=== PATIENT | female | born 1985 | race Caucasian/White ===

== ENCOUNTER → 2023-06-04 | Outpatient (CLI) | payer BC ==
[2023-06-04 15:59] LABS: INR 0.9 (<1.2); Partial Thromboplastin Time 24.6 sec (22.0-30.0); Prothrombin Time 10.5 sec (10.0-12.5)
[2023-06-05 02:39] LABS: HGB 13.6 g/dL (12.0-15.0); MCH 29.8 pg (27.0-32.0); MCHC 32.4 g/dL (32.0-37.0); MCV 92.1 FL (80.0-97.0); Mean Platelet Volume 11.3 FL (9.5-12.2); NRBC Per 100 WBC 0 X 10*3/uL (0.00-0.01); Platelet Count 258 X 10*3/uL (140-440); RBC 4.56 X 10*6/uL (4.10-5.20); RDW 13.3 % (11.5-14.5); WBC 10.32 X 10*3/uL (4.50-10.00)
[2023-06-05 02:58] LABS: Prealbumin 23.1 mg/dL (18.0-42.0)
[2023-06-05 03:44] LABS: % Iron Saturation 25.16 (12.00-45.00); ALT 15 U/L (8-44); AST 15 U/L (13-35); Albumin 4.1 g/dL (3.8-4.9); Albumin/Globulin Ratio 1.64 Ratio (1.60-3.17); Alkaline Phosphatase 58 U/L (41-126); BUN/Creat Ratio 11.75 Ratio (12.00-20.00); Blood Urea Nitrogen 9.4 mg/dL (9.0-27.0); Calcium 9.1 mg/dL (8.7-10.3); Chloride 105 mmol/L (96-109); Chol/HDL Ratio 4.12 Ratio; Ferritin 32.1 ng/mL (10.0-291.0); Globulin 2.5 g/dL (1.6-3.3); Glucose 98 mg/dL (70-110); Iron 117 UG/DL (50-170); Magnesium 2.2 mg/dL (1.5-2.4); Phosphorus 2.5 mg/dL (2.4-5.1); Potassium 3.9 mmol/L (3.5-5.5); Sodium 140 mmol/L (135-145); Total Bilirubin 0.3 mg/dL (0.3-1.2); Total Iron Binding Capacity 465 UG/DL (228-460); Total Protein 6.6 g/dL (6.2-8.2)
[2023-06-05 13:06] LABS: Zinc, Serum 68 ug/dL (60-130)
[2023-06-06 06:45] LABS: Vitamin A 51 ug/dL (38-106)
== END | disposition home or self-care (01) ==
LOC: LABWHC1 14:21
PROVIDERS: ATTEND Surgery Plastic and Reconstructive Surgery
DX: E66.01 Morbid (severe) obesity due to excess calories (principal); E89.1 Postprocedural hypoinsulinemia; D50.8 Other iron deficiency anemias; K91.2 Postsurgical malabsorption, not elsewhere classified; E44.0 Moderate protein-calorie malnutrition; E55.9 Vitamin D deficiency, unspecified; K74.1 Hepatic sclerosis; N19 Unspecified kidney failure; E44.1 Mild protein-calorie malnutrition; E45 Retarded development following protein-calorie malnutrition; E46 Unspecified protein-calorie malnutrition; T56.894A Toxic effect of other metals, undetermined, initial encounter; K50.90 Crohn's disease, unspecified, without complications
CPT/HCPCS: 36415; 80053; 80061; 80323; 82306; 82525; 82607; 82728; 82746; 83036; 83540; 83550; 83721; 83735; 83970; 84100; 84134; 84255; 84425; 84443; 84590; 84630; 85027; 85610; 85730; 93005

== ENCOUNTER → 2023-07-03 | Outpatient (CLI) | payer BC ==
--- NOTE | 2023-07-03 10:27 | FL ---
ESOPHOGRAM. HISTORY: Dysphagia Esophagram was performed per the air contrast technique. The patient swallowed barium and effervesce nt crystals without difficulty or delay. Esophageal peristalsis and motility appear to be within normal limits. There is no evidence for filling defect, mass or diverticulum. Small reducible sliding type hiatal hernia. Subsequently single contrast cervical esophagram was performed which fails demonstrate evidence for a spiration penetration or mass. IMPRESSION: Small reducible sliding type hiatal hernia.
== END | disposition home or self-care (01) ==
LOC: RADUSWWP 09:37
PROVIDERS: ATTEND Surgery Plastic and Reconstructive Surgery
DX: R13.10 Dysphagia, unspecified (principal); K44.9 Diaphragmatic hernia without obstruction or gangrene
CPT/HCPCS: 74220

== ENCOUNTER → 2023-07-14 | Day surgery (SDC) | payer BC ==
[~2023-07-14] MED LIST: LIDOCAINE 1% (10MG/ML) FOR IV START INTRADERMA PRN; LIDOCAINE 2% (PF) 20 MG/ML 5 ML VIAL ONE; ONDANSETRON 4 MG/2 ML VIAL IVP PRN; PROPOFOL 10 MG/ML 20 ML VIAL IV ONE; fentaNYL (PF) 50 MCG/ML 2 ML AMP ONE
--- NOTE | 2023-07-14 07:36 | P.GSHP ---
History of Present Illness H&P Date: 07/14/23 CHIEF COMPLAINT: GERD HISTORY OF PRESENT ILLNESS: The patient is a 38-year-old female who presents reports gastroesophageal reflux disease. Upper endoscopy was offered for further evaluation and management. PAST MEDICAL HISTORY: Please see list. PAST SURGICAL HISTORY: Please see list. MEDICATIONS: Please see list. ALLERGIES: Please see list. SOCIAL HISTORY: No illicit drug use FAMILY HISTORY: No reports of Crohn disease or ulcerative colitis. REVIEW OF ORGAN SYSTEMS: CONSTITUTIONAL: No reports of fevers or chills. GI: Denies any blood in stools or constipation. PHYSICAL EXAM: VITAL SIGNS: Stable GENERAL: Well-developed and pleasant in no acute distress. HEENT: No scleral icterus. Extraocular movements grossly intact. Moist buccal mucosa. NECK: Supple without lymphadenopathy. CHEST: Unlabored respirations. Equal bilateral excursions. CARDIOVASCULAR: Regular rate and rhythm. Distal 2+ pulses. ABDOMEN: Soft, nondistended. MUSCULOSKELETAL: No clubbing, cyanosis, or edema. ASSESSMENT: 1. Gastroesophageal reflux disease PLAN: 1. Recommend proceeding with an upper endoscopy Past Medical History Past Medical History: Asthma, GERD/Reflux, Hypertension Additional Past Medical History / Comment(s): hx migraines, sometimes will have stuff coming up back of throat History of Any Multi-Drug Resistant Organisms: None Reported Past Surgical History: Appendectomy, Section, Cholecystectomy, Tubal Ligation Additional Past Surgical History / Comment(s): C/S x3 Past Anesthesia/Blood Transfusion Reactions: Previous Problems w/ Anesthesia, Motion Sickness, Postoperative Nausea & Vomiting (PONV) Additional Past Anesthesia/Blood Transfusion Reaction / Comment(s): slow to wake up after last surg. Smoking Status: Former smoker, Vaper Medications and Allergies Home Medications Medication Instructions Recorded Confirmed Type Famotidine [Pepcid] 10 mg PO DAILY 06/04/23 07/10/23 History Losartan [Cozaar] 25 mg PO DAILY 06/04/23 07/10/23 History Omeprazole 20 mg PO DAILY 06/04/23 07/10/23 History Propranolol [Inderal] 10 mg PO DAILY 06/04/23 07/10/23 History norethindrone-e.estradioL-iron 1 tab PO DAILY 06/10/23 07/10/23 History [Junel Fe 1 mg-20 Mcg Tablet] Ibuprofen [Motrin Ib] 200 mg PO HS 07/10/23 07/10/23 History Allergies Allergy/AdvReac Type Severity Reaction Status Date / Time shellfish derived [Shellfish] Allergy Swelling Verified 07/10/23 17:15
[2023-07-14] MEDS: LACTATED RINGERS 1,000 ML IV SCH (08:05)
[2023-07-14 08:16] VITALS: TEMP 97.5
--- NOTE | 2023-07-14 08:40 | P.PCN ---
Date of Procedure: 07/14/23 Description of Procedure: PREOPERATIVE DIAGNOSIS: Gastroesophageal reflux disease. Morbid obesity. POSTOPERATIVE DIAGNOSIS: Gastroesophageal reflux disease. Morbid obesity. Gastritis. OPERATION: Esophagogastroduodenoscopy with biopsies esophagus, along antrum and duodenum SURGEON: Apple Bernal MD ANESTHESIA: MAC. INDICATIONS: The patient is a 38-year-old female who presents with reflux disease. Benefits and risks of the procedure were described. Informed consent was obtained. DESCRIPTION: The patient was brought into the endoscopy suite and laid in the left lateral decubitus position. An Olympus gastroscope was passed along the posterior oropharynx down to the distal esophagus where the squamocolumnar junction was encountered at 40 cm from the incisors. The stomach was entered and no bile reflux was found. Additional findings are listed below. Biopsies with cold forceps were obtained of the antrum. The first through third portion of the duodenum was examined. Retroflexion of the scope confirmed Hill grade 2 lower esophageal valve. The squamocolumnar junction demonstrated LA grade B erosive esophagitis. The stomach was desufflated. The patient tolerated the procedure well. FINDINGS: Squamocolumnar junction 40 cm from the incisors. Diaphragmatic hiatus at 40 cm. Hill grade 2 lower esophageal valve. LA grade B erosive esophagitis. Biopsies obtained Biopsies obtained of the duodenum. Chronic gastritis with biopsies obtained. RECOMMENDATIONS: Upper endoscopy as needed. Plan - Discharge Summary Discharge Rx Participant: No New Discharge Prescriptions: Continue Losartan [Cozaar] 25 mg PO DAILY Propranolol [Inderal] 10 mg PO DAILY Omeprazole 20 mg PO DAILY Famotidine [Pepcid] 10 mg PO DAILY norethindrone-e.estradioL-iron [Junel Fe 1 mg-20 Mcg Tablet] 1 tab PO DAILY Ibuprofen [Motrin Ib] 200 mg PO HS Discharge Medication List Famotidine [Pepcid] 10 mg PO DAILY 06/04/23 [History] Losartan [Cozaar] 25 mg PO DAILY 06/04/23 [History] Omeprazole 20 mg PO DAILY 06/04/23 [History] Propranolol [Inderal] 10 mg PO DAILY 06/04/23 [History] norethindrone-e.estradioL-iron [Junel Fe 1 mg-20 Mcg Tablet] 1 tab PO DAILY 06/10/23 [History] Ibuprofen [Motrin Ib] 200 mg PO HS 07/10/23 [History] Follow up App[facility]ment(s[facility] [facility] [place] - [place]/[facility]/23 Patient Instructions/Handouts: *Surgery [facility] - (Anesthesia) Discharge Instructions Outpatient Surgery, Gastritis (DC), GERD (Gastroesophageal Reflux Disease) (DC) Discharge Disposition: HOME SELF-CARE
[2023-07-14] MEDS: ONDANSETRON 4 MG/2 ML VIAL IVP ONE (08:45)
[2023-07-14 08:51] VITALS: RESP 16
[2023-07-14 09:26] VITALS: BP 107/71; PULSE 59
== END | disposition home or self-care (01) ==
LOC: ORWHC2ENDO 07:18
PROVIDERS: ATTEND Surgery Plastic and Reconstructive Surgery
DX: K29.50 Unspecified chronic gastritis without bleeding (principal); K21.00 Gastro-esophageal reflux disease with esophagitis, without bleeding; E66.01 Morbid (severe) obesity due to excess calories; D72.820 Lymphocytosis (symptomatic); I10 Essential (primary) hypertension; J45.909 Unspecified asthma, uncomplicated; Z79.899 Other long term (current) drug therapy; Z87.891 Personal history of nicotine dependence; Z90.49 Acquired absence of other specified parts of digestive tract; Z98.51 Tubal ligation status; Z91.013 Allergy to seafood; Z79.1 Long term (current) use of non-steroidal anti-inflammatories (NSAID); Z68.41 Body mass index [BMI] 40.0-44.9, adult
CPT/HCPCS: 81025; 88305; 43239; J2405; J3010; J2704; J2001

== ENCOUNTER → 2023-08-06 | Outpatient (CLI) | payer BC ==
[2023-08-06 13:08] VITALS: BP 128/84; PULSE 85; TEMP 98.3; BMI 41.6
--- NOTE | 2023-08-06 13:59 | P.BASOAP ---
Subjective Progress Note Date: 08/06/23 Recommend fixing hiatal hernia. Treatment for celiac disease. Carafate prescribed. EGD, reviewed. Labs reviewed. Objective - Vital Signs Vital signs: Vital Signs Temp 98.3 F 08/06/23 13:01 Pulse 85 08/06/23 13:01 Resp BP 128/84 08/06/23 13:01 Pulse Ox FiO2 Intake & Output 08/05/23 08/06/23 08/06/23 18:59 06:59 18:59 Weight 126.008 kg Assessment/Plan Plan: Date: 08/06/23 Initial Weight: 122.016 kg Initial BMI: 40.3 Current Weight: 126.008 kg Current BMI: 41.6 Type of Surgery: Total Volume in Band: Previous Volume: Volume Removed: Volume Added: Band Size:
== END ==
LOC: BARWHC3 12:41
PROVIDERS: ATTEND Surgery Plastic and Reconstructive Surgery
DX: E66.01 Morbid (severe) obesity due to excess calories (principal); Z53.9 Procedure and treatment not carried out, unspecified reason
CPT/HCPCS: 99211

== ENCOUNTER → 2023-08-18 | Outpatient (CLI) | payer BC ==
[2023-08-18 15:11] VITALS: BMI 42.1
== END ==
LOC: BARWHC3 13:01
PROVIDERS: ATTEND Surgery Plastic and Reconstructive Surgery
DX: E66.01 Morbid (severe) obesity due to excess calories (principal); Z71.3 Dietary counseling and surveillance; Z91.013 Allergy to seafood
CPT/HCPCS: 97804

== ENCOUNTER 2023-09-01 13:46 | Day surgery (SDC) | payer BC ==
--- NOTE | 2023-09-01 06:54 | P.GSHP ---
History of Present Illness H&P Date: 09/01/23 CHIEF COMPLAINT: Morbid obesity HISTORY OF PRESENT ILLNESS: Hui Philippe is a 38-year-old female who comes with lifelong morbid obesity. As result of morbid obesity, she has developed hypertensive heart disease, osteoarthritis of the hips and knees. She presents with symptomatic reflux disease including diaphragmatic hiatal hernia. She presents for hiatal hernia repair At height of 5 feet 8 inches, her ideal body weight is 163 pounds. She comes in 277 pounds. Her body mass index is 42.1. She is 114 pounds overweight. PAST MEDICAL HISTORY: 1. Morbid obesity due to excess calories 2. Body mass index of 42.1 3. Osteoarthritis of the knees. 4. Osteoarthritis of the lower back. 5. Hypertensive heart disease. 6. Gastroesophageal reflux disease 7. Asthma 8. Depressive disorder 9. Generalized anxiety disorder PAST SURGICAL HISTORY: 1. Cholecystectomy 2. section 3. Appendectomy HOME MEDICATIONS: Reviewed ALLERGIES: Reviewed SOCIAL HISTORY: Past tobacco use. FAMILY HISTORY: No family history of ulcerative colitis disease or Crohn's disease. Family history of morbid obesity. No lupus in the family. No reports of stomach or esophageal cancer. Has clotting disorder. REVIEW OF ORGAN SYSTEMS: CONSTITUTIONAL: At height of 5 feet 8 inches, her ideal body weight is 163 pounds. She comes in 277 pounds. Her body mass index is 42.1. She is 114 pounds overweight. HEENT: Denies any active troubles with vision or hearing. ENDOCRINE: Has diabetes. Has hypothyroidism. CARDIOVASCULAR: Past reports of palpitations or heart attacks or chest pain. RESPIRATORY: Has daytime somnolence. GASTROINTESTINAL: Denies any bright red blood per rectum. Has gastroesophageal reflux disease. MUSCULOSKELETAL: Has lower back pain and joint pain. Has osteoarthritis of the knees. NEURO: No headaches. No seizure disorders. PSYCH: Has depression. No suicidal ideation. RHEUMATOLOGIC: No lupus. No rheumatoid arthritis. HEMATOLOGIC: Denies any abnormal bleeding or bruising. No personal history of DVTs. SKIN: Has rash. No skin cancer. PHYSICAL EXAM: VITAL SIGNS: Height 5 foot 8 inches, weight 277 pounds. BMI 42.1 GENERAL: Well-developed in no acute distress. HEENT: No scleral icterus. Extraocular movements grossly intact. Hears conversational speech. No nasal drainage. NECK: Supple without lymphadenopathy. CHEST: Nonlabored respirations with equal bilateral excursions. CARDIOVASCULAR: Regular rate and regular rhythm. Distal 2+ pulses. ABDOMEN: Obese, soft, nontender, nondistended. MUSCULOSKELETAL: No clubbing, cyanosis. NEURO: No focal or lateralizing signs. Cranial nerves 2 through 12 grossly within normal limits. PSYCH: Appropriate affect. Alert and oriented to person, place and time. SKIN: Good skin turgor. Well perfused. STUDIES: Barium swallow June 2023 independently reviewed demonstrates sliding diaphragmatic hiatal hernia. This is my independent interpretation. ASSESSMENT: 1. Morbid obesity due to excess calories 2. Body mass index of 42.1 3. Osteoarthritis of the knees. 4. Osteoarthritis of the lower back. 5. Hypertensive heart disease. 6. Gastroesophageal reflux disease 7. Asthma 8. Depressive disorder 9. Generalized anxiety disorder 10. Diaphragmatic hiatal hernia 11. Celiac disease PLAN: 1. Repair of diaphragmatic hiatal hernia described due to symptomatic and severe gastroesophageal reflux disease 2. A 2 week high-protein low caloric 800 kcal diet described to address hepatomegaly. Anticipated weight loss of 5% or 263 pounds. 3. DVT prophylaxis per [place] [facility]. 4. Antibiotic prophylaxis. 5. Inpatient hospitalization anticipated for more than 2 nights. 6. She is elevated risk for complications including recurrence due to pre- existing asthma Past Medical History Past Medical History: Asthma, GERD/Reflux, Hypertension Additional Past Medical History / Comment(s): HIATAL HERNIA History of Any Multi-Drug Resistant Organisms: None Reported Past Surgical History: Appendectomy, Section, Cholecystectomy Additional Past Surgical History / Comment(s): x 3, EGD Past Anesthesia/Blood Transfusion Reactions: Previous Problems w/ Anesthesia, Motion Sickness, Postoperative Nausea & Vomiting (PONV) Smoking Status: Former smoker - Past Family History Father Family Medical History: Blood Disorder Additional Family Medical History / Comment(s): HAS CLOTTING DISORDER-NOT SURE OF NAME Medications and Allergies Home Medications Medication Instructions Recorded Confirmed Type Famotidine [Pepcid] 10 mg PO DAILY 06/04/23 08/28/23 History Losartan [Cozaar] 25 mg PO DAILY 06/04/23 08/28/23 History Omeprazole 20 mg PO DAILY 06/04/23 08/28/23 History Propranolol [Inderal] 10 mg PO DAILY 06/04/23 08/28/23 History norethindrone-e.estradioL-iron 1 tab PO DAILY 06/10/23 08/28/23 History [Junel Fe 1 mg-20 Mcg Tablet] Ibuprofen [Motrin Ib] 200 mg PO HS 07/10/23 08/28/23 History Allergies Allergy/AdvReac Type Severity Reaction Status Date / Time shellfish derived [Shellfish] Allergy Swelling Verified 08/28/23 08:32
[~2023-09-01 13:46] MED LIST changes: -LIDOCAINE 1% (10MG/ML) FOR IV START INTRADERMA PRN; -LIDOCAINE 2% (PF) 20 MG/ML 5 ML VIAL ONE; -PROPOFOL 10 MG/ML 20 ML VIAL IV ONE; -fentaNYL (PF) 50 MCG/ML 2 ML AMP ONE
[2023-09-01] MEDS: LACTATED RINGERS 1,000 ML IV SCH (13:48)
[2023-09-01] MEDS: ACETAMINOPHEN TAB 500 MG TAB PO PRN (14:02)
[2023-09-01] MEDS: DEXAMETHASONE SOD PHOSPHATE 4 MG/ML 1 ML VIAL IV ONE (14:02)
[2023-09-01] MEDS: ONDANSETRON 4 MG/2 ML VIAL IVP ONE (14:02)
[2023-09-01] MEDS: HEPARIN SODIUM,PORCINE 5,000 UNIT/ML 1 ML VIAL SQ PRN (14:02)
[2023-09-01] MEDS: CHLORHEXIDINE GLUCONATE 15 ML CUP MUCOUS MEM STA (14:02)
[2023-09-01] MEDS: PANTOPRAZOLE 40 MG/10 ML VIAL IVP STA (14:03)
[2023-09-01] MEDS: SCOPOLAMINE 1 MG/72 HR PATCH TRANSDERM STA (14:03)
[2023-09-01] MEDS: MIDAZOLAM 2 MG/2 ML VIAL IVP ONE (14:47)
[2023-09-01] MEDS ORDERED: PROPOFOL 10 MG/ML 20 ML VIAL IV ONE (16:32)
[2023-09-01] MEDS ORDERED: fentaNYL (PF) 50 MCG/ML 2 ML AMP ONE (16:32)
[2023-09-01] MEDS ORDERED: LIDOCAINE 1% INJ 10MG/ML (20 ML MDV) ONE (16:32)
[2023-09-01] MEDS ORDERED: NEOSTIGMINE 1 MG/ML 10 ML VIAL ONE (16:32)
[2023-09-01] MEDS ORDERED: ROCURONIUM 10 MG/ML (5 ML VIAL) IV ONE (16:32)
[2023-09-01] MEDS ORDERED: HYDROmorphone (PF) 1 MG/ML ONE (16:32)
[2023-09-01] MEDS ORDERED: GLYCOPYRROLATE 0.2 MG/ML 2 ML VIAL ONE (16:32)
[2023-09-01] MEDS ORDERED: ONDANSETRON 4 MG/2 ML VIAL ONE (16:32)
[2023-09-01] MEDS ORDERED: MIDAZOLAM 2 MG/2 ML VIAL ONE (16:32)
[2023-09-01] MEDS ORDERED: SUCCINYLCHOLINE CHLORIDE 200 MG/10 ML VIAL IV ONE (16:32)
[2023-09-01] MEDS: ceFAZolin 3 GM in SODIUM CHLORIDE 0.9% 100 ML IVPB PRN (16:37)
[2023-09-01] MEDS: metroNIDAZOLE-NS PMX 500 MG in SALINE 1 100ML.BAG IVPB PRN (16:37)
[2023-09-01] MEDS: LIDOCAINE 1%-EPI 1:100,000 20 ML VIAL SQ ONE (17:04)
[2023-09-01] MEDS ORDERED: HYDROmorphone 1 MG/ML 1 ML SYRINGE IVP PRN (18:06)
[2023-09-01] MEDS: droPERidol 5 MG/2 ML VIAL IVP ONE (18:09)
--- NOTE | 2023-09-01 18:11 | P.OP ---
Date of Procedure: 09/01/23 Description of Procedure: SURGEON: RODOLFO ALEXANDER MD PREOPERATIVE DIAGNOSES: 1. Paraesophageal midline diaphragmatic hernia 2. Morbid obesity due to excess calories, Body mass index of 42.1 3. Osteoarthritis of the knees. 4. Osteoarthritis of the lower back. 5. Hypertensive heart disease. 6. Gastroesophageal reflux disease 7. Asthma 8. Depressive disorder 9. Generalized anxiety disorder 10. Celiac disease POSTOPERATIVE DIAGNOSES: 1. Paraesophageal midline diaphragmatic hernia, 3 cm, without incarceration. 2. Morbid obesity due to excess calories, Body mass index of 42.1 3. Osteoarthritis of the knees. 4. Osteoarthritis of the lower back. 5. Hypertensive heart disease. 6. Gastroesophageal reflux disease 7. Asthma 8. Depressive disorder 9. Generalized anxiety disorder 10. Celiac disease OPERATION: 1. Robotic-assisted da Colleen Xi laparoscopic repair of incarcerated paraesophageal hiatal hernia, 3 x 3 cm, with [place] Biopatch A 8 x 8 cm. 2. Intraoperative esophagogastroduodenoscopy 3. Placement of 56-[place] bougie ANESTHESIA: General with local anesthetic. ESTIMATED BLOOD LOSS: 5 mL SPECIMENS REMOVED: None COMPLICATIONS: None. Condition: stable Disposition: floor FINDINGS: 1. Midline incarcerated paraesophageal hiatal hernia 3 x 3 cm 2. Intraoperative upper endoscopy confirms complete closure of hiatal hernia from Hill grade 3 to Hill grade 1 3. Intraesophageal length over 3 cm INDICATIONS: The patient is a 38-year-old female who presents with gastroesophageal reflux disease poorly controlled despite medications, and a symptomatic diaphragmatic hiatal hernia. Preoperative workup including upper endoscopy demonstrated a sliding hiatal hernia. Given the severity of symptoms, the patient had elected for surgical intervention. Benefits and risks including bleeding, infection, recurrence, dysphagia, injury to the lung, need for further surgery was described at length. Informed consent was obtained. DESCRIPTION: The patient was brought into the operating room and placed in supine position. Preoperatively the patient had received heparin subcutaneously for DVT prophylaxis. After general induction, the abdomen was prepped and draped in standard sterile fashion. The patient had previously voided prior to coming to the o perating room. [place] draping was placed along the abdomen. A timeout protocol was confirmed with the surgical team, for which the patient's name, procedure to be performed including DVT prophylaxis with bilateral SCDs, and preoperative antibiotics were also confirmed. A robotic da Collene Xi system was prepped and primed. At 12 cm from the xiphoid to just below the umbilicus, proposed port sites were marked with indelible marker along the left axillary line, left mid-clavicular line with each ports were marked 10 cm from each other. A 5 mm 0 degrees laparoscopic trocar entry was performed along the left upper quadrant. The abdomen was insufflated to 15 mmHg pressure was tolerated well. Diagnostic laparoscopy demonstrated no injury to bowel, viscera, or mesentery. No injury had occurred to the small bowel or viscera. The liver was smooth consistent with two-week high-protein low-carb diet. Previous trochar sites from cholecystectomy were used. Next, one 8 mm robotic port was placed along the right upper abdomen. An 8-mm port was were placed along the right lateral lateral abdominal wall. The camera 8-mm port was maintained along the epigastrium. Another 12 mm port was placed along the left upper abdominal wall after exchanging the 5 mm port. Please note that the ports were placed at least 20 cm away from the target anatomy. Care was taken to check that each robotic arm were safely away from collision with the bed or the patient. At the epigastrium, a medium sized Ethan liver retractor was placed under direct visualization with the Iron Boat Outfitter placed under the right shoulder of the patient. All robotic arms were used. The patient was repositioned in reverse Trendelenburg position at 25-degrees after lowering the bed. The robot was docked above the right side of the patient. Using a grasper for arm 3, a grasper for arm 1, including vessel sealer for arm 2, the robotic system was docked and primed as described. Instruments were interchanged by the central supply assistant. I had sat at the console. The gastrohepatic ligament was cleaved using a vessel sealer. Next, the phrenoesophageal ligament was mobilized and the distal esophagus was mobilized circumferentially. The left and right crura was identified. Circumferentially, the hernia sac was excised and brought into the peritoneal cavity. Moderate dissection into the mediastinum was performed to release the esophagus into the abdominal cavity. The paraesophageal hiatal hernia sac was also incised and divided from the esophagus. Care was taken to avoid any gastrotomy. The measured defect was consistent with 3 cm axial length and 3 cm in width. After dissection, the distal esophagus of 2+ cm was brought into the abdominal cavity. Once the hiatus and crura was dissected, 2-0 VLOC nonabsorbable suture was placed to reapproximate the diaphragmatic hiatus posteriorly. To buttress the repair, a [place] Biopatch A was prepared along the back table and cut in half of a manning-hole fashion as to reinforce the repair as an underlay. The mesh was placed along the crural repair and tagged using horizontal mattress sutures using 2-0 VLOC. I went to the head of the bed to perform intraoperative esophagogastroduodenoscopy and placement of a 56Fr bougie. The bougie was passed along the posterior oropharynx into the stomach to address pre-existing esophageal dysmotility for 2 minutes then removed. An Olympus gastroscope was passed through posterior oropharynx. Retroflexion of the scope confirmed a Hill grade 1 lower esophageal valve. The stomach had been desufflated. No evidence of leaks were found of the esophagus or stomach. The GI tract with desufflated This concluded the endoscopic portion of the case. The robot was undocked from the patient. I re-scrubbed into the case. All instruments and pneumoperitoneum and specimens were evacuated from the abdominal cavity. Incisions were reapproximated using 4-0 Monocryl in an interrupted subcuticular fashion. Liquid glue was applied to the skin. Local anesthetic was infiltrated in all wounds for postop analgesia. At the end of the procedure, needle, sponge, and instrument count was verified correct by the surgical physician assistant. The patient had tolerated the procedure well and was taken to the postanesthesia unit in stable condition.
[2023-09-01] MEDS ORDERED: diphenhydrAMINE 50 MG/ML 1 ML VIAL IVP PRN (18:14)
[2023-09-01] MEDS: IV FLUID CONTINUATION 1,000 ML IV ONE (18:30)
[2023-09-01] MEDS: HYDROmorphone 0.5 MG/0.5 ML SYRINGE IVP PRN (18:31)
[2023-09-01] MEDS: DEXAMETHASONE SOD PHOSPHATE 4 MG/ML 1 ML VIAL IVP SCH (22:09)
[2023-09-01] MEDS: HEPARIN SODIUM,PORCINE 5,000 UNIT/ML 1 ML VIAL SQ SCH (22:24)
[2023-09-01] MEDS: D5-0.45% NACL WITH KCL 20MEQ/L 1,000 ML IV SCH (23:36)
[2023-09-01] MEDS: SIMETHICONE 80 MG CHEWABLE PO SCH (23:37)
[2023-09-01] MEDS: ONDANSETRON 4 MG/2 ML VIAL IVP SCH (23:38)
[2023-09-01] MEDS: KETOROLAC 15 MG/ML 1 ML VIAL IVP SCH (23:38)
[2023-09-01] MEDS: METOCLOPRAMIDE 5 MG/ML 2 ML VIAL IVP SCH (23:39)
[2023-09-02] MEDS: ACETAMINOPHEN ORAL SUSP (PEDS) 3,840 MG/120 ML BOTTLE PO SCH (01:46)
[2023-09-02] MEDS: HYOSCYAMINE ORAL DROPS 1.875 MG/15 ML BOTTLE PO SCH (01:49)
[2023-09-02] MEDS: NORETHINDRONE PO SCH (09:43)
[2023-09-02] MEDS: ETHINYL ESTRADIOL PO SCH (09:43)
[2023-09-02] MEDS: LOSARTAN 25 MG TAB PO SCH (09:43)
[2023-09-02] MEDS: PROPRANOLOL 10 MG TAB PO SCH (09:43)
[2023-09-02] MEDS: IRON PO SCH (09:43)
--- NOTE | 2023-09-02 12:26 | FL ---
SINGLE CONTRAST ESOPHAGRAM: CLINICAL HISTORY: 38 year-old female rule out leak/obstruction status post hiatal hernia repair TECHNIQUE: Single contrast exam performed with 4 ounces of thin barium per surgeon request (due to s hellfish allergy). Total fluoroscopy time: 1 minute Total images: 22 oh DOSE AREA PRODUCT (DAP) UGY*M,MGY*CM: 384.98 FINDINGS: The patient swallowed oral contrast without difficulty or delay. Esophageal peristalsis and motility are within normal limits. There is prompt passage of contrast from the esophagus into the stomach. We note prominent air distention of the gastric fundus and proximal gastric body. No residual hiatal hernia is seen. There is good flow of contrast to the distal stomach and proximal duodenum. There is no evidence of contrast extravasation to suggest leak. No post surgical free air. IMPRESSION: No evidence of leak or significant obstruction status post hiatal hernia repair. Prominent air disten tion of the gastric fundus and proximal gastric body.
[2023-09-02 13:41] VITALS: BMI 41.3
--- NOTE | 2023-09-02 14:27 | P.DS ---
Providers Expected date of discharge: 09/02/23 Attending physician: Apple Bernal [facility] [place] [facility] Course: Discharge diagnosis 1. Paraesophageal midline diaphragmatic hernia, 3 cm, without incarceration. 2. Morbid obesity due to excess calories, Body mass index of 42.1 3. Osteoarthritis of the knees. 4. Osteoarthritis of the lower back. 5. Hypertensive heart disease. 6. Gastroesophageal reflux disease 7. Asthma 8. Depressive disorder 9. Generalized anxiety disorder 10. Celiac disease Hospital course The patient is a 38-year-old female who presents with gastroesophageal reflux disease poorly controlled despite medications, and a symptomatic diaphragmatic hiatal hernia. Patient is status post robotic assisted laparoscopic repair of incarcerated paraesophageal hiatal hernia with [place] bio patch. Patient is crissy erating liquid diet. Upper GI showed no evidence of leak or obstruction. She is having flatus. Her pain is controlled. She has been up and ambulating. She is stable for discharge. Physician Lawyer note has been reviewed by physician. Signing provider agrees with the documented findings, assessment, and plan of care. Patient Condition at Discharge: Stable Plan - Discharge Summary Discharge Rx Participant: Yes New Discharge Prescriptions: New bisacodyL [Dulcolax] 5 mg PO DAILY PRN #10 tab PRN Reason: Constipation Simethicone 40 mg/0.6 ml Drops [Mylicon Drops] 40 mg PO PCHS PRN #30 ml PRN Reason: Gas Acetaminophen Tab [Tylenol Tab] 1,000 mg PO Q6HR PRN #30 tablet PRN Reason: Pain Ondansetron Odt [Zofran Odt] 4 mg PO Q8HR PRN #9 tab PRN Reason: Nausea Continue Losartan [Cozaar] 25 mg PO DAILY Propranolol [Inderal] 10 mg PO DAILY norethindrone-e.estradioL-iron [Junel Fe 1 mg-20 Mcg Tablet] 1 tab PO DAILY Discontinued Omeprazole 20 mg PO DAILY Famotidine [Pepcid] 10 mg PO DAILY Ibuprofen [Motrin Ib] 200 mg PO HS Discharge Medication List Losartan [Cozaar] 25 mg PO DAILY 06/04/23 [History] Propranolol [Inderal] 10 mg PO DAILY 06/04/23 [History] norethindrone-e.estradioL-iron [Junel Fe 1 mg-20 Mcg Tablet] 1 tab PO DAILY 06/10/23 [History] Acetaminophen Tab [Tylenol Tab] 1,000 mg PO Q6HR PRN #30 tablet 09/01/23 [Rx] Ondansetron Odt [Zofran Odt] 4 mg PO Q8HR PRN #9 tab 09/01/23 [Rx] Simethicone 40 mg/0.6 ml Drops [Mylicon Drops] 40 mg PO PCHS PRN #30 ml 09/01/23 [Rx] bisacodyL [Dulcolax] 5 mg PO DAILY PRN #10 tab 09/01/23 [Rx] Follow up Appointment(s)/[place] [facility] [place] - 09/05/23 9:00 am Patient Instructions/Handouts: Laparoscopic Hiatal Hernia Repair (DC) Activity/Diet/Wound Care/Special Instructions: Liquid diet only for 2 weeks until September 14 No lifting over 4 pounds in 4 weeks, October 01August shower No soaking in bath tubs for 2 weeks, September 14 Please notify your surgeon if you develop nausea and vomiting including new onset of abdominal pain. Please ambulate at all times. Use Simethicone, Gas-X, Tylenol and ibuprofen or Aleve scheduled for the next 24-48 hours for best pain relief. Use ice along incisions for the today to prevent swelling. Please open, cut, crush pills larger than the size of a tic tack No carbonated beverages. No straws. Do not remove scopolamine patch for 3 days, if present Avoiding Gas Avoid drinking through a straw. Do not chew gum or tobacco. These actions cause you to swallow air, which produces excess gas in your stomach. Chew with your mouth closed. Avoid any foods that cause stomach gas and distention. These foods include corn, dried beans, peas, lentils, onions, broccoli, cauliflower and any food from the cabbage family. Avoid carbonated drinks, alcohol, citrus and tomato products. Carbonated drinks (sodas) are not allowed for the first six to eight weeks after surgery. After this time you can try them again in small amounts Clear Liquid Diet The first diet after surgery is the clear liquid diet. It includes the following liquids: Apple juice Cranberry juice Grape juice Chicken broth Beef broth Flavored gelatin (Jell-O) Decaf tea and coffee Caffeinated beverages are permitted based on tolerance Popsicles British ice Full Liquid Diet The full liquid diet contains anything on the clear liquid diet, plus: Milk, soy, rice and almond (no chocolate) Cream of wheat, cream of rice, grits Strained creamed soups (no tomato or broccoli) Vanilla and strawberry-flavored ice cream Sherbet Blended, custard styled or whipped yogurt (plain or vanilla only) Vanilla and butterscotch pudding (no chocolate or coconut) Nutritional drinks including Ensure, Boost, [place] Instant Breakfast (no chocolate-flavored) Note: Dairy products, such as milk, ice cream and pudding, may cause diarrhea in some people just after surgery. You may need to avoid milk products. If so, substitute them with lactose-free beverages, such as soy, rice, Lactaid or almond milks. Discharge Disposition: HOME SELF-CARE
[2023-09-02 14:29] VITALS: BP 115/67; PULSE 68; RESP 18; TEMP 98.6
== END 2023-09-02 15:22 | disposition home or self-care (01) ==
LOC: OR 13:46 → 4SSUR 17:52 → OR 09-02 15:22
PROVIDERS: ATTEND Surgery Plastic and Reconstructive Surgery
DX: K44.0 Diaphragmatic hernia with obstruction, without gangrene (principal); E66.01 Morbid (severe) obesity due to excess calories; F32.A Depression, unspecified; F41.1 Generalized anxiety disorder; I11.9 Hypertensive heart disease without heart failure; J45.909 Unspecified asthma, uncomplicated; K21.9 Gastro-esophageal reflux disease without esophagitis; K90.0 Celiac disease; M16.0 Bilateral primary osteoarthritis of hip; M17.0 Bilateral primary osteoarthritis of knee; Z87.891 Personal history of nicotine dependence; Z79.899 Other long term (current) drug therapy; Z90.49 Acquired absence of other specified parts of digestive tract; Z98.891 History of uterine scar from previous surgery; Z79.1 Long term (current) use of non-steroidal anti-inflammatories (NSAID); Z68.41 Body mass index [BMI] 40.0-44.9, adult
CPT/HCPCS: 43282; S2900; 74210; 81025

== ENCOUNTER → 2023-09-05 | Outpatient (CLI) | payer BC ==
[2023-09-05 10:43] VITALS: BP 131/87; PULSE 103; RESP 14; TEMP 97.6; BMI 40.1
--- NOTE | 2023-09-05 11:02 | P.BASOAP ---
Subjective Progress Note Date: 09/05/23 She complains of itching along incisions. Has allergic reaction to draping. Patient advised 4-week recovery from August 31 to October 01. Lifting restrictions of 4 pounds for 4 weeks reinforced. Follow-up bariatric diet. Follow-up in 1 week. Use Zyrtec, Claritin, Benadryl, calamine lotion for itching along incisions. She reports no reflux disease. Son is at bedside. Patient may drive. Objective - Vital Signs Vital signs: Vital Signs Temp 97.6 F 09/05/23 09:52 Pulse 103 H 09/05/23 09:52 Resp 14 09/05/23 09:52 BP 131/87 09/05/23 09:52 Pulse Ox FiO2 Intake & Output 09/04/23 09/05/23 09/05/23 18:59 06:59 18:59 Weight 121.336 kg Assessment/Plan Plan: Date: 09/05/23 Initial Weight: 122.016 kg Initial BMI: 40.3 Current Weight: 121.336 kg Current BMI: 40.1 Type of Surgery: Total Volume in Band: Previous Volume: Volume Removed: Volume Added: Band Size:
== END ==
LOC: BARWHC3 08:53
PROVIDERS: ATTEND Surgery Plastic and Reconstructive Surgery
DX: E66.01 Morbid (severe) obesity due to excess calories (principal); L29.9 Pruritus, unspecified; Z88.8 Allergy status to other drugs, medicaments and biological substances; Z91.048 Other nonmedicinal substance allergy status; Z91.018 Allergy to other foods; Z91.013 Allergy to seafood; Z68.41 Body mass index [BMI] 40.0-44.9, adult; Z87.891 Personal history of nicotine dependence
CPT/HCPCS: 99211

== ENCOUNTER → 2023-09-10 | Outpatient (CLI) | payer BC ==
--- NOTE | 2023-09-10 13:34 | P.BASOAP ---
Subjective Progress Note Date: 09/10/23 She has severe allergic reaction despite benadryl and zyrtec did not help. Ordered Dexamethasone 20 mg IM. Has severe rash. NO GERD. Wants sleeve after this. Triamcinalone cream prescribed. Allergic to glue! Diet advised. She has celiac disease. No bypass. Lifting restrictions until September 29. Objective - Vital Signs Vital signs: Vital Signs Temp 98.0 F 09/10/23 12:59 Pulse 81 09/10/23 12:59 Resp 14 09/10/23 12:59 BP 119/85 09/10/23 12:59 Pulse Ox FiO2 Intake & Output 09/09/23 09/10/23 09/10/23 18:59 06:59 18:59 Weight 119.748 kg Assessment/Plan Plan: Date: 09/10/23 Initial Weight: 122.016 kg Initial BMI: 40.3 Current Weight: 119.748 kg Current BMI: 39.5 Type of Surgery: Total Volume in Band: Previous Volume: Volume Removed: Volume Added: Band Size:
[2023-09-10 14:29] VITALS: BMI 39.5
[2023-09-10] MEDS: DEXAMETHASONE SOD PHOSPHATE 10 MG/ML 1 ML VIAL IM STA (14:35)
[2023-09-10 15:23] VITALS: BP 133/85; PULSE 99; RESP 16; TEMP 98.3
== END ==
LOC: BARWHC3 12:45
PROVIDERS: ATTEND Surgery Plastic and Reconstructive Surgery
DX: L50.9 Urticaria, unspecified (principal)
CPT/HCPCS: 99211; 96372; J1100

== ENCOUNTER 2023-11-03 10:00 | Observation (INO) | payer BC ==
--- NOTE | 2023-11-03 07:51 | P.GSHP ---
History of Present Illness H&P Date: 11/03/23 CHIEF COMLAINT: Morbid obesity HISTORY OF PRESENT ILLNESS: Hui Philippe is a 38-year-old female who comes with lifelong morbid obesity. She wants the sleeve but now wants the bypass. She has been taking prilosec and pepcid for 5 years and her gastroesophageal reflux disease is still uncontrolled. Her sister had weight loss surgery. She had pneumonia in the past. She has severe acid reflux and had panic attack from chest pain. She had ulcers in her stomach. Add no prior testing of her stomach, CT scans or upper scopes. She reports in the morning she can taste acid in her throat. She tries to avoid carbonated beverages. She reports diarrhea after eating. She has no gallbladder since 10 years ago and appendix removal. She is looking into the gastric bypass ideally. At height of 5 feet 8.5 inches, her ideal body weight is 163 pounds. She comes in 269 pounds. Her body mass index is 40.3. She is 106 pounds overweight. PAST MEDICAL HISTORY: 1. Morbid obesity due to excess calories 2. Body mass index of 40.3 3. Hypertensive heart disease 4. Asthma 5. Gastroesophageal reflux disease 6. Motion sickness 7. Postop nausea vomiting 8. Depressive disorder 9. Generalized anxiety disorder 10. Gastric ulcers. PAST SURGICAL HISTORY: 1. Appendectomy 2. section 3. Cholecystectomy HOME MEDICATIONS: Home Medications Medication Instructions Recorded Confirmed Losartan [Cozaar] 25 mg PO DAILY 06/04/23 09/05/23 Propranolol [Inderal] 10 mg PO DAILY 06/04/23 09/05/23 norethindrone-e.estradioL-iron 1 tab PO DAILY 06/10/23 09/05/23 [Junel Fe 1 mg-20 Mcg Tablet] Previous Rx's Medication Instructions Recorded Acetaminophen Tab [Tylenol Tab] 1,000 mg PO Q6HR PRN #30 tablet 09/01/23 Ondansetron Odt [Zofran Odt] 4 mg PO Q8HR PRN #9 tab 09/01/23 Simethicone 40 mg/0.6 ml Drops 40 mg PO PCHS PRN #30 ml 09/01/23 [Mylicon Drops] bisacodyL [Dulcolax] 5 mg PO DAILY PRN #10 tab 09/01/23 ALLERGIES: Allergies Allergy/AdvReac Type Severity Reaction Status Date / Time shellfish derived [Shellfish] Allergy Swelling Verified 09/05/23 09:52 SOCIAL HISTORY: Past tobacco use. Currently vaping FAMILY HISTORY: No family history of ulcerative colitis disease or Crohn's dise ase. Family history of morbid obesity. No lupus in the family. No reports of stomach or esophageal cancer. Family history of blood clotting disorder. Sister had weight loss surgery. REVIEW OF ORGAN SYSTEMS: CONSTITUTIONAL: At height of 5 feet 8.5 inches, her ideal body weight is 163 pounds. She comes in 269 pounds. Her body mass index is 40.3. She is 106 pounds overweight. HEENT: Denies any active troubles with vision or hearing. Has troubles with swallowing. ENDOCRINE: Has diabetes. No hypothyroidism. CARDIOVASCULAR: Past reports of palpitations or heart attacks or chest pain. RESPIRATORY: Has daytime somnolence. Has asthma. Had pneumonia in the past. GASTROINTESTINAL: Denies any bright red blood per rectum. No constipation. Has severe gastroesophageal reflux disease. She had ulcers in her stomach. She has diarrhea after eating. MUSCULOSKELETAL: Has lower back pain and joint pain. Has osteoarthritis of the knees. History of bilateral lower extremity edema. NEURO: No headaches. No seizure disorders. PSYCH: Has depression. No suicidal ideation. RHEUMATOLOGIC: No lupus. No rheumatoid arthritis. HEMATOLOGIC: Denies any abnormal bleeding or bruising. No personal history of DVTs. On anticoagulant. SKIN: No rash. No skin cancer. PHYSICAL EXAM: VITAL SIGNS: Height 5 foot 8.5 inches, weight 269 pounds. BMI 40.3 GENERAL: Well-developed in no acute distress. HEENT: No scleral icterus. Extraocular movements grossly intact. Hears conversational speech. No nasal drainage. NECK: Supple without lymphadenopathy. CHEST: Nonlabored respirations with equal bilateral excursions. CARDIOVASCULAR: Regular rate and regular rhythm. Distal 2+ pulses. ABDOMEN: Obese, soft, nontender, nondistended. MUSCULOSKELETAL: No clubbing, cyanosis. NEURO: No focal or lateralizing signs. Cranial nerves 2 through 12 grossly within normal limits. PSYCH: Appropriate affect. Alert and oriented to person, place and time. SKIN: Good skin turgor. Well perfused. ASSESSMENT: 1. Morbid obesity due to excess calories 2. Body mass index of 40.3 3. Hypertensive heart disease 4. Asthma 5. Gastroesophageal reflux disease 6. Motion sickness 7. Postop nausea vomiting 8. Depressive disorder 9. Generalized anxiety disorder 10. Gastric ulcers. 11. Chronic diarrhea 12. Status post hiatal hernia repair for gastroesophageal reflux disease PLAN: PLAN: 1. Bariatric options between a sleeve, band and a Adam-en-Y gastric bypass were reviewed in detail. The patient elected for a sleeve gastrectomy. Robotic assisted approach described. Risk of spontaneous gastroesophageal reflux disease postoperatively described. 2. The [place] [facility] Data was also reviewed with benefits and risks as described. 3. An 8 page second-generation bariatric consent form was reviewed in detail including potential of bleeding, infection, leaks, adequate weight loss, nutritional deficiencies which the patient demonstrated understanding of the risks. 4. A 2 week high-protein low caloric 800 kcal diet described to address hepatomegaly. 5. Preoperative labs including complete metabolic panel and CBC with type and screen recommended. 6. DVT prophylaxis per [place] [facility]. 7. Antibiotic prophylaxis. 8. Inpatient hospitalization anticipated for more than 2 nights. 9. All questions and concerns were addressed with the patient. 10. The patient is at elevated risk for perioperative complications with sleep apnea and hypertensive heart disease. 11. Overall, patient has expressed understanding of bariatric care including postoperative diet and commitment of lifestyle. Patient should benefit from surgical intervention for correction of morbid obesity. 12. She is elevated risk due to pre-existing comorbid conditions 13. Regional block requested for postoperative pain. 14. Anticipated 5% weight loss down to 253 pounds described otherwise 114.9 kg Past Medical History Past Medical History: Asthma, Hypertension History of Any Multi-Drug Resistant Organisms: None Reported Past Surgical History: Appendectomy, Section, Cholecystectomy, Hernia Repair, Tubal Ligation Additional Past Surgical History / Comment(s): x 3, hiatal hernia, Past Anesthesia/Blood Transfusion Reactions: Previous Problems w/ Anesthesia, Motion Sickness, Postoperative Nausea & Vomiting (PONV) Smoking Status: Former smoker - Past Family History Father Additional Family Medical History / Comment(s): blood disorder that causes him to clot easily Medications and Allergies Home Medications Medication Instructions Recorded Confirmed Type Losartan [Cozaar] 25 mg PO DAILY 06/04/23 10/28/23 History Propranolol [Inderal] 10 mg PO DAILY 06/04/23 10/28/23 History norethindrone-e.estradioL-iron 1 tab PO DAILY 06/10/23 10/28/23 History [Junel Fe 1 mg-20 Mcg Tablet] Acetaminophen Tab [Tylenol Tab] 1,000 mg PO Q6HR PRN #30 tablet 09/01/2310/27 Rx Allergies Allergy/AdvReac Type Severity Reaction Status Date / Time adhesive Allergy Itching Verified 10/28/23 09:57 gluten Allergy Diarrhea Verified 10/28/23 09:57 shellfish derived [Shellfish] Allergy Swelling Verified 10/28/23 09:57
[~2023-11-03 10:00] MED LIST changes: +HYDROmorphone 0.5 MG/0.5 ML SYRINGE IVP PRN; +LIDOCAINE 1% (10MG/ML) FOR IV START INTRADERMA PRN; -ONDANSETRON 4 MG/2 ML VIAL IVP PRN
[2023-11-03] MEDS: IV FLUID CONTINUATION 1,000 ML IV ONE ×2 (10:20→13:50)
[2023-11-03 10:55] LABS: Basophils % (A) 0 %; Eosinophils # (A) 0.1 k/uL (0-0.7); Eosinophils % (A) 1 %; HCT 39.5 % (34.0-46.0); HGB 13.7 gm/dL (11.4-16.0); Lymphocytes # (A) 1.6 k/uL (1.0-4.8); Lymphocytes % (A) 18 %; MCH 30.9 pg (25.0-35.0); MCHC 34.6 g/dL (31.0-37.0); MCV 89.3 fL (80.0-100.0); Mean Platelet Volume 8.5; Monocytes # (A) 0.5 k/uL (0-1.0); Monocytes % (A) 5 %; Neutrophils # (A) 6.8 k/uL (1.3-7.7); Neutrophils % (A) 74 %; Platelet Count 221 k/uL (150-450); RBC 4.43 m/uL (3.80-5.40); RDW 12.8 % (11.5-15.5); WBC 9.1 k/uL (3.8-10.6)
[2023-11-03 10:58] LABS: Glucose,Whole Blood 90 mg/dL (70-110)
[2023-11-03] MEDS: CHLORHEXIDINE GLUCONATE 15 ML CUP MUCOUS MEM STA (11:03)
[2023-11-03] MEDS: ACETAMINOPHEN TAB 500 MG TAB PO PRN (11:03)
[2023-11-03] MEDS: PANTOPRAZOLE 40 MG/10 ML VIAL IVP STA (11:03)
[2023-11-03] MEDS: ALVIMOPAN 12 MG CAPSULE PO PRN (11:03)
[2023-11-03] MEDS: diphenhydrAMINE 50 MG/ML 1 ML VIAL IVP STA (11:03)
[2023-11-03] MEDS: ONDANSETRON 4 MG/2 ML VIAL IVP PRN (11:04)
[2023-11-03] MEDS: SCOPOLAMINE 1 MG/72 HR PATCH TRANSDERM STA (11:04)
[2023-11-03] MEDS: DEXAMETHASONE SOD PHOSPHATE 4 MG/ML 1 ML VIAL IV ONE (11:04)
[2023-11-03] MEDS: LACTATED RINGERS 1,000 ML IV SCH (11:05)
[2023-11-03] MEDS: MIDAZOLAM 2 MG/2 ML VIAL IVP ONE (11:07)
[2023-11-03] MEDS: ENOXAPARIN 40 MG/0.4 ML SYRINGE SQ PRN (11:19)
--- NOTE | 2023-11-03 11:19 | P.ANPRN ---
Procedure Note - Anesthesia - Nerve Block Performed Bilateral Erector Spinae Single Time Out Performed: Yes Date of Procedure: 11/03/23 Procedure Start Time: 11:07 Procedure Stop Time: 22:12 Location of Patient: PreOp Indication: Acute Post-Operative Pain, Analgesia, Requested by Surgeon Sedation Type: Sedate with meaningful contact maintained Preparation: Sterile Prep Position: Prone Catheter: None Needle Types: Pajunk Needle Gauge: 21 Ultrasound used to visualize needle placement: Yes Ultrasound used to observe medication spread: Yes Injectate: 0.5% Ropivacaine (see comment for volume) (Ropiv 20ml+decadron 4mg---Each side) Blood Aspirated: No Pain Paresthesia on Injection Noted: No Resistance on Injection: Normal Image Stored and Saved: Yes Events: Uneventful and Well Tolerated
[2023-11-03] MEDS ORDERED: PHENYLEPHRINE 10 MG/ML VIAL ONE (11:33)
[2023-11-03] MEDS ORDERED: PROPOFOL 10 MG/ML 20 ML VIAL IV ONE (11:33)
[2023-11-03] MEDS ORDERED: ROCURONIUM 10 MG/ML (5 ML VIAL) IV ONE (11:33)
[2023-11-03] MEDS ORDERED: ROPIVACAINE 5 MG/ML 30 ML VIAL ONE (11:33)
[2023-11-03] MEDS ORDERED: NEOSTIGMINE 1 MG/ML 10 ML VIAL ONE (11:33)
[2023-11-03] MEDS ORDERED: LIDOCAINE 1% INJ 10MG/ML (20 ML MDV) ONE (11:33)
[2023-11-03] MEDS ORDERED: SUCCINYLCHOLINE CHLORIDE 200 MG/10 ML VIAL IV ONE (11:33)
[2023-11-03] MEDS ORDERED: HYDROmorphone (PF) 1 MG/ML ONE (11:33)
[2023-11-03] MEDS ORDERED: GLYCOPYRROLATE 0.2 MG/ML 2 ML VIAL ONE (11:33)
[2023-11-03] MEDS ORDERED: DEXAMETHASONE SOD PHOSPHATE 4 MG/ML 1 ML VIAL ONE (11:33)
[2023-11-03] MEDS ORDERED: fentaNYL (PF) 50 MCG/ML 2 ML AMP ONE (11:33)
[2023-11-03] MEDS ORDERED: MIDAZOLAM 2 MG/2 ML VIAL ONE (11:33)
[2023-11-03] MEDS: LIDOCAINE 1%-EPI 1:100,000 20 ML VIAL SQ ONE (12:15)
[2023-11-03] MEDS ORDERED: NALOXONE 0.4 MG/ML 1 ML VIAL IV PRN ×2 (13:39→16:45)
--- NOTE | 2023-11-03 13:45 | P.OP ---
Date of Procedure: 11/03/23 Description of Procedure: SURGEON: RODOLFO ALEXANDER MD PREOPERATIVE DIAGNOSES: 1. Morbid obesity due to excess calories 2. Body mass index of 40.3 3. Hypertensive heart disease 4. Asthma 5. Gastroesophageal reflux disease 6. Motion sickness 7. Postop nausea vomiting 8. Depressive disorder 9. Generalized anxiety disorder 10. Gastric ulcers. 11. Chronic diarrhea 12. Status post hiatal hernia repair for gastroesophageal reflux disease POSTOPERATIVE DIAGNOSES: 1. Morbid obesity due to excess calories 2. Body mass index of 40.3 3. Hypertensive heart disease 4. Asthma 5. Gastroesophageal reflux disease 6. Motion sickness 7. Postop nausea vomiting 8. Depressive disorder 9. Generalized anxiety disorder 10. Gastric ulcers. 11. Chronic diarrhea 12. Status post hiatal hernia repair for gastroesophageal reflux disease 13. Hepatomegaly with fatty liver disease OPERATION: 1. Robotic assisted daVinci Xi laparoscopic sleeve gastrectomy with 40-Greenlandic bougie, multiport. 2. Intraoperative esophagogastroduodenoscopy. ANESTHESIA: Gen. local anesthetic ESTIMATED BLOOD LOSS: 10 mL SPECIMENS REMOVED: Sleeve gastrectomy COMPLICATIONS: None. FINDINGS: 1. Negative intraoperative esophagogastrojejunoscopy leak test. 2. Mild hepatomegaly and no recurrent hiatus hernia. 3. Total of 5 staplers used including 1 - 60 mm green robot pablito, 4 - 60 mm blue robot loads used to create the gastric sleeve. 4. Sleeve gastrectomy, 28 x 6 cm INDICATIONS: Hui Philippe is a 38-year-old female who comes with lifelong morbid obesity. She wants the sleeve but now wants the bypass. She has been taking prilosec and pepcid for 5 years and her gastroesophageal reflux disease is still uncontrolled. Her sister had weight loss surgery. She had pneumonia in the past. She has severe acid reflux and had panic attack from chest pain. She had ulcers in her stomach. Add no prior testing of her stomach, CT scans or upper scopes. She reports in the morning she can taste acid in her throat. She tries to avoid carbonated beverages. She reports diarrhea after eating. She has no gallbladder since 10 years ago and appendix removal. She is looking into the gastric bypass ideally. At height of 5 feet 8.5 inches, her ideal body weight is 163 pounds. She comes in 269 pounds. Her body mass index is 40.3. She is 106 pounds overweight. All surgical options for morbid obesity had been described using the [place] [facility] comorbidity resolution including complication risk score. A second-generation bariatric consent form was described in detail including the possibility of protein malnutrition, leaks, gastric stricture, venous thrombosis, gastroesophageal reflux disease, need for further surgery for which she demonstrated understanding. Benefits and risks of the procedure were described at length. Informed consent was obtained. DESCRIPTION: The patient was brought into the operating room theater. Preoperatively she had received Lovenox subcutaneously for DVT prophylaxis. Additionally she had Peridex oral solution as an oral decontaminant. After general induction, the abdomen was prepped and draped in standard sterile fashion. An Ioban draping was placed along the abdomen. A robotic da Colleen Xi system was prepped and primed. At 15 cm from the xiphoid, proposed port sites were marked with indelible marker along the anterior axillary line bilaterally, mid axillary line bilaterally with each ports were marked 10 to 15 cm from each other. The robotic stapler port was marked for the right midclavicular line. A 5 mm 0 degrees laparoscopic trocar entry was performed along the left upper quadrant. The abdomen was insufflated to 15 mmHg pressure was tolerated well. Diagnostic laparoscopy demonstrated no injury to bowel, viscera, or mesentery. The liver edge was slightly thickened due to mild hepatomegaly despite 2-week protein diet. No recurrent hiatal hernia was identified A 8 mm port was placed along the left upper abdominal wall after exchanging the 5 mm port. A separate 8 mm port was placed along the left lateral abdominal wall. Please note that the ports were placed at least 20 cm away from the target anatomy. Care was taken to check each robotic arms were safely away from collision with the bed or the patient. At the epigastrium, a medium sized Ethan liver retractor was placed under direct visualization with the Iron Train Brake Operator placed under the right shoulder of the patient. Next, 12-mm robot stapler port was placed along the right upper quadrant. The camera 8-mm port was maintained along the epigastrium. The patient was repositioned in reverse Trendelenburg position at 25-degrees after lowering the bed. The robot was docked along the left side of the patient. Using a grasper for arm 4, a vessel sealer for arm 3, including grasper for arm 1, the robotic system was docked and primed as described. Instruments were interchanged by the multimedia assistant for stapler loads. The camera was placed at 30- degrees down. I had sat at the console. The pylorus was identified and 6 cm proximally along the greater curvature of the stomach, the short gastrics were mobilized upwards to the angle of His using a vessel sealer. Hemostasis was excellent during this portion of the procedure. Next, the upper pole of the stomach was adherent to the left brit, which was gently dissected free using atraumatic grasper. I went to the head of the bed and placed 40-Greenlandic blunt bougie into the s tomach. The bougie was readjusted by the nurse children's counselor. Robotic stapler green 60 mm x 1, and blue 60 mm loads x 4 were used to create the sleeve. Initial firing was across the antrum of the stomach towards the angle of His. The staple line was linear without corkscrewing. The space from the angularis incisura of the sleeve was approximately 4 cm. I then went to the head of the bed to perform the intraoperative esophagogastroduodenoscopy leak test. The bougie was withdrawn. The upper pole of the stomach was bathed using normal saline solution. The scope was withdrawn with careful inspection along the staple line for which no leaks were found along the entire length. Additionally,the sleeve was completely hemostatic without any encroachment along the angularis incisura. Its topology was a soft "J". No stricture was encountered upon placement of the scope. The GI tract was desufflated. The patient tolerated this portion of the procedure well. The scope was completely withdrawn. The robot was undocked. I then rescrubbed into case, whereby the irrigation fluid was aspirated from the abdominal cavity. Tisseel fibrin sealant was placed along the entire staple length. Once dried the Ethan liver retractor was removed. Attention was now brought to removal of the specimen. The distal end of the sleeve gastrectomy specimen was brought out through the 12 mm port at the left upper quadrant. The specimen was gently removed en total. No contamination had occurred during this process. All instruments and pneumoperitoneum including irrigation fluid was removed from the abdominal cavity. The 12 mm port site was closed using 0-Vicryl and Kaden Joe and irrigated with diluted hydrogen peroxide. The final incisions were closed using subcuticular interrupted suture of 4-0 Monocryl. Dermabond was applied to the skin once the skin had been cleansed. OptiFoam dressing was placed along the stomach extraction site. The sleeve specimen was measured and checked also for leaks which none were found. At the end of the procedure, needle, sponge, and instrument count was verified correct by the surgical appliances salesperson. The patient was taken to the postanesthesia care unit in stable condition. The patient had tolerated the procedure well. Intraoperative films and findings were reviewed with the patient's family.
[2023-11-03] MEDS: droPERidol 5 MG/2 ML VIAL IVP ONE (14:00)
[2023-11-03] MEDS: METOCLOPRAMIDE 5 MG/ML 2 ML VIAL IVP STA (14:07)
[2023-11-03] MEDS: 0.9% NACL WITH KCL 20 MEQ/L 1,000 ML IV SCH (15:34)
[2023-11-03] MEDS: SIMETHICONE 80 MG CHEWABLE PO SCH (16:41)
[2023-11-03 16:42] LABS: Basophils # (A) 0.1 k/uL (0-0.2); Basophils % (A) 0 %; Eosinophils # (A) 0.1 k/uL (0-0.7); Eosinophils % (A) 1 %; HGB 13.7 gm/dL (11.4-16.0); Lymphocytes # (A) 0.6 k/uL (1.0-4.8); Lymphocytes % (A) 3 %; MCH 30.6 pg (25.0-35.0); MCHC 33.4 g/dL (31.0-37.0); MCV 91.8 fL (80.0-100.0); Mean Platelet Volume 8.3; Monocytes # (A) 0.6 k/uL (0-1.0); Monocytes % (A) 3 %; Neutrophils # (A) 18.2 k/uL (1.3-7.7); Neutrophils % (A) 93 %; Platelet Count 241 k/uL (150-450); RBC 4.47 m/uL (3.80-5.40); RDW 12.7 % (11.5-15.5); WBC 19.6 k/uL (3.8-10.6)
[2023-11-03] MEDS: ONDANSETRON 4 MG/2 ML VIAL IVP SCH (16:42)
[2023-11-03] MEDS: ALBUTEROL NEBULIZED 2.5 MG/3 ML INHALATION SCH (16:42)
[2023-11-03] MEDS: ACETAMINOPHEN IV (For NPO) 1,000 MG in EMPTY BAG 1 BAG IVPB SCH (16:42)
[2023-11-03] MEDS: HYOSCYAMINE ORAL DROPS 1.875 MG/15 ML BOTTLE PO SCH (16:43)
[2023-11-03] MEDS: fentaNYL PCA 500 MCG/50 ML BAG IV SCH (17:41)
[2023-11-03] MEDS: DEXAMETHASONE SOD PHOSPHATE 4 MG/ML 1 ML VIAL IVP SCH (17:59)
[2023-11-03] MEDS: SODIUM CHLORIDE 0.9% 2,000 ML IV ONE (19:59)
[2023-11-03] MEDS: DEXAMETHASONE SOD PHOSPHATE 10 MG/ML 1 ML VIAL IVP ONE (19:59)
[2023-11-03] MEDS: PANTOPRAZOLE 40 MG/10 ML VIAL IV SCH (19:59)
[2023-11-03] MEDS: ceFAZolin 3 GM in SODIUM CHLORIDE 0.9% 100 ML IVPB SCH (19:59)
[2023-11-04] MEDS: ENOXAPARIN 40 MG/0.4 ML SYRINGE SQ SCH (09:39)
[2023-11-04] MEDS: PROPRANOLOL 10 MG TAB PO SCH (09:40)
[2023-11-04] MEDS: LOSARTAN 25 MG TAB PO SCH (09:40)
[2023-11-04 10:25] LABS: Basophils % (A) 0 %; Eosinophils % (A) 0 %; HGB 12.7 gm/dL (11.4-16.0); Lymphocytes # (A) 0.9 k/uL (1.0-4.8); Lymphocytes % (A) 4 %; MCH 30.1 pg (25.0-35.0); MCHC 32.5 g/dL (31.0-37.0); MCV 92.6 fL (80.0-100.0); Mean Platelet Volume 9.4; Monocytes # (A) 0.6 k/uL (0-1.0); Monocytes % (A) 3 %; Neutrophils # (A) 19.9 k/uL (1.3-7.7); Neutrophils % (A) 93 %; Platelet Count 225 k/uL (150-450); RBC 4.21 m/uL (3.80-5.40); RDW 12.8 % (11.5-15.5); WBC 21.5 k/uL (3.8-10.6)
[2023-11-04 10:27] LABS: African American GFR (CKD) >90 (>60 ml/min/1.73 sqM); Anion Gap 8 mmol/L; Blood Urea Nitrogen 7 mg/dL (7-17); Calcium 8.9 mg/dL (8.4-10.2); Carbon Dioxide 18 mmol/L (22-30); Chloride 112 mmol/L (98-107); Magnesium 2.2 mg/dL (1.6-2.3); Non-African American GFR(CKD) >90 (>60 ml/min/1.73 sqM); Phosphorus 2.4 mg/dL (2.5-4.5); Potassium 4.5 mmol/L (3.5-5.1); Sodium 138 mmol/L (137-145)
[2023-11-04 11:23] VITALS: BMI 39.7
[2023-11-04] MEDS: 0.9% NACL WITH KCL 20 MEQ/L 1,000 ML IV SCH (12:01)
--- NOTE | 2023-11-04 15:57 | FL ---
EXAMINATION TYPE: FL UGI DATE OF EXAM: 11/04/2023 COMPARISON: None HISTORY: Post gastric sleeve TECHNIQUE: A single contrast UGI study is performed. FINDINGS: Contrast passes from the distal esophagus through the gastric sleeve with no significant he sitancy. No extravasation of contrast is evident. No free air is noted during this examination. Overhead radiographs were obtained which are unremarkable. Fluoroscopy time: 32 seconds. Images: 16 IMPRESSION: 1. Normal post gastric sleeve without obstruction or hesitancy. No extravasation.
[2023-11-04] MEDS: diphenhydrAMINE 50 MG/ML 1 ML VIAL IVP PRN (18:48)
[2023-11-05] MEDS ORDERED: bisacodyL 5 MG TABLET.DR PO PRN (08:00)
[2023-11-05 08:19] VITALS: BP 119/75; PULSE 64; RESP 18; TEMP 97.9
--- NOTE | 2023-11-05 10:26 | P.PN ---
Subjective Progress Note Date: 11/05/23 CHIEF COMPLAINT: Morbid obesity HISTORY OF PRESENT ILLNESS: The patient is a 38-year-old female status post sleeve gastrectomy. She denies nausea or vomiting. She is tolerating liquids. Her pain is well-controlled today. ROS: No reports of nausea and vomiting. No bowel movements. No fevers or ch ills. No new chest pain. No productive sputum PHYSICAL EXAM: VITAL SIGNS: Reviewed CONSTITUTIONAL: Well developed and in no acute distress. Nontoxic in appearance EYES: Conjuctivae without sclera icterus. Extraocular movements grossly intact. HEAD, EARS, NOSE, THROAT: Moist buccal mucosa. Head is atraumatic, normocephalic. Hears conversational speech. No nasal drainage. RESPIRATORY: Non-labored respirations and equal bilateral excursions. CARDIOVASCULAR: Palpable 2+ radial pulses. ABDOMEN: Abdominal binder present. Incision clean dry intact. MUSCULOSKELETAL: No gross deformity of the lower extremities noted. No clubbing. No cyanosis. SKIN: Good skin turgor. Well perfused. NEUROLOGIC: Cranial nerves II through XII grossly intact. No focal or lateralizing signs. PSYCH: Appropriate affect. Alert and oriented to person, place and time. CLINICAL LABS: Reviewed. WBC elevated 21,000, post reactive leukocytosis. STUDIES: Esophagram reviewed without leak or obstruction. This is my independent interpretation. ASSESSMENT: 1. Morbid obesity due to excess calories, BMI 39.8 2. Status post sleeve gastrectomy. PLAN: 1. Clinically she has done well. Bariatric discharge instructions reviewed will follow-up within 72 hours with repeat CBC as outpatient. Objective - Vital Signs Vital signs: Vital Signs Temp 97.9 F 11/05/23 07:46 Pulse 64 11/05/23 09:09 Resp 18 11/05/23 09:09 BP 119/75 11/05/23 07:46 Pulse Ox 96 11/05/23 07:46 FiO2 Intake & Output 11/04/23 11/05/23 11/05/23 18:59 06:59 18:59 Weight 118.7 kg Other: Voiding Method Toilet Toilet Toilet # Voids 3 2 2 - Labs CBC & Chem 7: 11/04/23 09:25 11/04/23 09:25 Labs: Abnormal Lab Results - Last 24 Hours (Table) 07/09/24 07/09/24 Range/Units 09:25 09:25 WBC 21.5 H (3.8-10.6) k/uL Neutrophils # 19.9 H (1.3-7.7) k/uL Lymphocytes # 0.9 L (1.0-4.8) k/uL Chloride 112 H (98-107) mmol/L Carbon Dioxide 18 L (22-30) mmol/L Phosphorus 2.4 L (2.5-4.5) mg/dL
--- NOTE | 2023-11-05 10:30 | P.DS ---
Providers Date of admission: 11/04/23 14:04 Expected date of discharge: 11/05/23 Attending physician: Apple Bernal Consults: 11/03/23 07:52 Consult Physician Routine Consulting Provider: [facility] Consult Reason/Comments: Regional block Do you want consulting provider notified?: Yes Primary care physician: [facility] Course: POSTOPERATIVE DIAGNOSES: 1. Morbid obesity due to excess calories 2. Body mass index of 40.3 3. Hypertensive heart disease 4. Asthma 5. Gastroesophageal reflux disease 6. Motion sickness 7. Postop nausea vomiting 8. Depressive disorder 9. Generalized anxiety disorder 10. Gastric ulcers. 11. Chronic diarrhea 12. Status post hiatal hernia repair for gastroesophageal reflux disease 13. Hepatomegaly with fatty liver disease COURSE: Hui Philippe is a 38-year-old female presents with morbid obesity. She underwent sleeve gastrectomy. Postoperatively, IV fluid hydration for nausea including Decadron was given causing reactive leukocytosis. Prior to discharge, she was nontoxic in appearance, pain control, without nausea or vomiting and stable for discharge. Bariatric discharge instruction reviewed in detail. Follow-up to bariatric center in 72 hours reviewed. Procedures: OPERATION: 1. Robotic assisted daVinci Xi laparoscopic sleeve gastrectomy with 40-Kinyarwanda bougie, multiport. 2. Intraoperative esophagogastroduodenoscopy. ANESTHESIA: Gen. local anesthetic ESTIMATED BLOOD LOSS: 10 mL SPECIMENS REMOVED: Sleeve gastrectomy COMPLICATIONS: None. FINDINGS: 1. Negative intraoperative esophagogastrojejunoscopy leak test. 2. Mild hepatomegaly and no recurrent hiatus hernia. 3. Total of 5 staplers used including 1 - 60 mm green robot pablito, 4 - 60 mm blue robot loads used to create the gastric sleeve. 4. Sleeve gastrectomy, 28 x 6 cm Patient Condition at Discharge: Stable Plan - Discharge Summary Discharge Rx Participant: No New Discharge Prescriptions: New bisacodyL [Dulcolax] 5 mg PO DAILY PRN #10 tab PRN Reason: Constipation Simethicone 40 mg/0.6 ml Drops [Mylicon Drops] 40 mg PO PCHS PRN #30 ml PRN Reason: Gas Acetaminophen Tab [Tylenol Tab] 1,000 mg PO Q6HR PRN #30 tablet PRN Reason: Pain Omeprazole [PriLOSEC] 40 mg PO DAILY #30 cap Ondansetron Odt [Zofran Odt] 4 mg PO Q8HR PRN #9 tab PRN Reason: Nausea Continue Losartan [Cozaar] 25 mg PO DAILY Propranolol [Inderal] 10 mg PO DAILY norethindrone-e.estradioL-iron [Junel Fe 1 mg-20 Mcg Tablet] 1 tab PO DAILY Discontinued Acetaminophen Tab [Tylenol] 1,000 mg PO Q6HR PRN #30 tablet PRN Reason: Pain Discharge Medication List Losartan [Cozaar] 25 mg PO DAILY 06/04/23 [History] Propranolol [Inderal] 10 mg PO DAILY 06/04/23 [History] norethindrone-e.estradioL-iron [Junel Fe 1 mg-20 Mcg Tablet] 1 tab PO DAILY 06/10/23 [History] Acetaminophen Tab [Tylenol Tab] 1,000 mg PO Q6HR PRN #30 tablet 11/05/23 [Rx] Omeprazole [PriLOSEC] 40 mg PO DAILY #30 cap 11/05/23 [Rx] Ondansetron Odt [Zofran Odt] 4 mg PO Q8HR PRN #9 tab 11/05/23 [Rx] Simethicone 40 mg/0.6 ml Drops [Mylicon Drops] 40 mg PO PCHS PRN #30 ml 11/05/23 [Rx] bisacodyL [Dulcolax] 5 mg PO DAILY PRN #10 tab 11/05/23 [Rx] Follow up Appointment(s)/Referral(s): Bariatric [place], [place] [NON-STAFF] - 11/07/23 9:00 am Patient Instructions/Handouts: Nutrition after Bariatric Surgery (GEN), Laparoscopic Sleeve Gastrectomy (DC) Activity/Diet/Wound Care/Special Instructions: Liquid diet only for 2 weeks until November 16August Shower. No soaking in bath tubs 2 weeks until November 16 Continue to use incentive spirometry to prevent pneumonias. Please continue to ambulate at home to prevent blood clots in legs. Please notify your surgeon if you develop nausea and vomiting including new onset of abdominal pain. No lifting over 4 pounds in 4 weeks, Dec 03 Drink 64 oz of fluid daily. Start protein shakes on . Notify bariatric center for temp over 101.0, increased pain, drainage from incisions. No straws or carbonated beverages. Liquid diet only. Sugar content should be less than 6 g to avoid dumping syndrome. Take MOM for constipation. CRUSH, OPEN, OR CUT TABLETS LARGER THAN A SIZE OF A TIC TAC Discharge Disposition: HOME SELF-CARE
== END 2023-11-05 12:35 | disposition home or self-care (01) ==
LOC: OR 10:00 → 4SSUR 14:08 → OR 11-04 14:04
PROVIDERS: ADMIT Surgery Plastic and Reconstructive Surgery; ATTEND Surgery Plastic and Reconstructive Surgery
DX: E66.01 Morbid (severe) obesity due to excess calories (principal); Z68.41 Body mass index [BMI] 40.0-44.9, adult; I11.9 Hypertensive heart disease without heart failure; J45.909 Unspecified asthma, uncomplicated; K21.9 Gastro-esophageal reflux disease without esophagitis; K25.9 Gastric ulcer, unspecified as acute or chronic, without hemorrhage or perforation; K52.9 Noninfective gastroenteritis and colitis, unspecified; T75.3XXA Motion sickness, initial encounter; F32.A Depression, unspecified; F41.1 Generalized anxiety disorder; K76.0 Fatty (change of) liver, not elsewhere classified; F41.0 Panic disorder [episodic paroxysmal anxiety]; F17.290 Nicotine dependence, other tobacco product, uncomplicated; R16.0 Hepatomegaly, not elsewhere classified; Z79.3 Long term (current) use of hormonal contraceptives; Z79.899 Other long term (current) drug therapy; Z91.013 Allergy to seafood; Z91.048 Other nonmedicinal substance allergy status; Z90.49 Acquired absence of other specified parts of digestive tract; Z87.19 Personal history of other diseases of the digestive system; Z87.01 Personal history of pneumonia (recurrent); Z98.51 Tubal ligation status; Z98.891 History of uterine scar from previous surgery; Z98.890 Other specified postprocedural states
CPT/HCPCS: 43775; S2900; 64999; 74240; 80051; 81025; 82310; 82565; 83735; 84100; 84520; 85025; 86850; 86900; 86901; 88307; 94640; 94760; 96372

== ENCOUNTER → 2023-11-07 | Outpatient (CLI) | payer BC ==
--- NOTE | 2023-11-07 09:38 | P.BASOAP ---
Subjective Progress Note Date: 11/07/23 Patient presents with urticaria from surgical drapes including glue. She reports moderate severe itching. Patient advised to take Zyrtec or Claritin scheduled for the next 5 days. During clinic, recommend dexamethasone 10 Mg IM for Severe Urticaria. Overall Excellent Weight Loss over 20 Pounds. Follow-Up in 1 Week. Reports Having Bowel Movements and Passing Flatus. No Reflux. Assessment/Plan Plan: Date: Initial Weight: 122.016 kg Initial BMI: Current Weight: Current BMI: Type of Surgery: Total Volume in Band: Previous Volume: Volume Removed: Volume Added: Band Size:
[2023-11-07 09:56] VITALS: BMI 38.2
[2023-11-07 10:05] VITALS: BP 116/77; PULSE 82; RESP 16; TEMP 97.7
[2023-11-07] MEDS: DEXAMETHASONE SOD PHOSPHATE 10 MG/ML 1 ML VIAL IM STA (10:06)
== END ==
LOC: BARWHC3 08:24
PROVIDERS: ATTEND Surgery Plastic and Reconstructive Surgery
DX: L50.9 Urticaria, unspecified (principal); Z91.048 Other nonmedicinal substance allergy status; Z91.02 Food additives allergy status; Z91.013 Allergy to seafood
CPT/HCPCS: 99211; 96372; J1100